=== PATIENT | male | born 1975 | race Caucasian/White ===

== ENCOUNTER 2023-02-10 08:34 | Inpatient (IN) | payer OTHER ==
[~2023-02-10] VITALS: Ht 162.6 cm; Wt 95.0 kg
[2023-02-10 09:17] LABS: BASOPHILS # (AUTO) 0.1 X10'3 (0-0.2); BASOPHILS % (AUTO) 0.8 % (0-1); EOSINOPHILS # (AUTO) 0.1 X10'3 (0-0.9); EOSINOPHILS % (AUTO) 0.7 % (0-6); HEMATOCRIT 48.6 % (42.0-52.0); HEMOGLOBIN 16.2 g/dl (14.0-17.9); LYMPHOCYTES # (AUTO) 0.9 X10'3 (1.1-4.8); LYMPHOCYTES % (AUTO) 11.1 % (21-51); MEAN CORPUSCULAR HEMOGLOBIN 31.7 PG (27.0-31.0); MEAN CORPUSCULAR HGB CONC 33.3 g/dL (33.0-36.5); MEAN CORPUSCULAR VOLUME 95.3 FL (78-98); MEAN PLATELET VOLUME 7.9 FL (7.4-10.4); MONOCYTES # (AUTO) 0.9 X10'3 (0-0.9); MONOCYTES % (AUTO) 10.6 % (2-12); NEUTROPHILS # (AUTO) 6.4 X10'3 (1.8-7.7); NEUTROPHILS % (AUTO) 76.8 % (42-75); PLATELET COUNT 252 X10'3 (140-440); RED CELL DISTRIBUTION WIDTH 13.9 % (11.5-14.5); WHITE BLOOD COUNT 8.3 X10'3 (4.5-11.0)
[2023-02-10 09:40] LABS: ALANINE AMINOTRANSFERASE 25 U/L (12-78); ALBUMIN 2.9 G/DL (3.4-5.0); ALBUMIN/GLOBULIN RATIO 0.8 (1.1-1.5); ALKALINE PHOSPHATASE 86 IU/L (46-116); ANION GAP 7 (8-16); ASPARTATE AMINO TRANSFERASE 13 U/L (10-37); BILIRUBIN,TOTAL 0.6 MG/DL (0.1-1.0); BLOOD UREA NITROGEN 16 MG/DL (7-18); BUN/CREATININE RATIO 15.1 (10.0-20.0); CHLORIDE 104 MMOL/L (99-107); CREATININE 1.06 MG/DL (0.60-1.10); GLUCOSE 148 MG/DL (70-104); POTASSIUM 3.5 MMOL/L (3.5-5.1); SODIUM 136 MMOL/L (135-145); TOTAL CARBON DIOXIDE 25.1 MMOL/L (24-32); TOTAL PROTEIN 6.6 G/DL (6.4-8.2); eGFR 74 ML/MIN
[2023-02-10] MEDS ORDERED: carVEDilol 12.5mg tablet PO STA (10:14)
[2023-02-10] MEDS ORDERED: enalaprilat dihydrate 2.5mg/2ml vial IV ONE (10:15)
[2023-02-10] MEDS ORDERED: aspirin 81mg tab.chew PO ONE (10:15)
[2023-02-10] MEDS ORDERED: furosemide 10 MG/1 ML 10ml inj IV ONE (10:15)
[2023-02-10] MEDS ORDERED: furosemide 40mg/4ml inj IV ONE (10:30)
[2023-02-10] MEDS ORDERED: potassium Cl 40MEQ/1/2NS 520ml 520 ML IV PRN (11:25)
[2023-02-10] MEDS ORDERED: ondansetron/PF 4mg/2ml inj IV PRN (11:25)
[2023-02-10] MEDS ORDERED: acetaminophen 325mg tablet PO PRN (11:25)
[2023-02-10] MEDS ORDERED: potassium Cl 20 mEq SR tablet PO PRN (11:25)
[2023-02-10] MEDS ORDERED: mag hydrox/Alum hydrox/simeth 30ml oral suspension PO PRN (11:25)
[2023-02-10] MEDS ORDERED: magnesium 4gm in 100ml NS 100 ML IV PRN (11:25)
[2023-02-10] MEDS ORDERED: magnesium hydroxide 30ml (MOM) UD suspension PO PRN (11:25)
[2023-02-10] MEDS ORDERED: CefTRIAXone 2gm/D5W 50ml BAG 50 ML IV ONE (11:40)
[2023-02-10 12:28] LABS: URINE AMPHETAMINE SCREEN NEGATIVE (Neg); URINE BARBITUATE SCREEN NEGATIVE (Neg); URINE BENZODIAZEPINES SCREEN NEGATIVE (Neg); URINE CANNABINOID SCREEN POSITIVE (Neg); URINE COCAINE SCREEN NEGATIVE (Neg); URINE METHADONE SCREEN NEGATIVE (Neg); URINE OPIATE SCREEN NEGATIVE (Neg); URINE PHENCYCLIDINE SCREEN NEGATIVE (Neg)
[2023-02-10] MEDS ORDERED: NO HOME MEDS (12:48)
--- NOTE | 2023-02-10 13:57 | NUR ---
left message for martita lyn, substance use navigator.
[2023-02-10 14:00] VITALS: BP_SYST 149; BP_DIAS 108; BP_DIAS 70
--- NOTE | 2023-02-10 14:30 | NUR ---
Received pt from ED via wheelchair. Pt A&Ox4, denies pain. Pt on RA. Oriented pt to room and call light.
[2023-02-10] MEDS: piperacillin/tazo 4.5gm/100ml 100 ML IV SCH ×2 (16:15→23:01)
[2023-02-10] MEDS ORDERED: LORazepam 2 mg/ml vial IV PRN (17:00)
[2023-02-10] MEDS ORDERED: haloperidol 5mg tablet PO PRN (17:00)
[2023-02-10] MEDS ORDERED: LORazepam 1 MG tablet PO PRN (17:00)
[2023-02-10] MEDS ORDERED: haloperidol lactate 5mg/ml inj IM PRN (17:00)
--- NOTE | 2023-02-10 17:31 | NUR ---
PAGER ID: [phone] MESSAGE: Kirk Jacobo in [id number] - Diastolic BP is 102 and previous one was 108. He was 147/108 and now 152/102. -Antoinette [phone]
--- NOTE | 2023-02-10 17:32 | NUR ---
SW Dr. Dye regarding pt's blood pressure. He is not concerned with the diastolic, just continue to monitor the systolic and call if it increases.
[2023-02-10] MEDS: docusate sod 100mg capsule PO SCH (19:46)
[2023-02-10] MEDS: K and/or MAG REPLACEMENT MC SCH (19:46)
[2023-02-10 19:50] VITALS: BP 147/109
[2023-02-10] MEDS: carvedilol 6.25mg tablet PO SCH (19:51)
[2023-02-10] MEDS: furosemide 40mg/4ml inj IV SCH (19:52)
[2023-02-10] MEDS: enoxaparin 40mg/0.4ml syringe SQ SCH (19:52)
[2023-02-10] MEDS: sacubitril/valsartan 24mg-26mg tablet PO SCH (19:52)
[2023-02-10 22:00] VITALS: BP 141/95
[2023-02-11 02:00] VITALS: BP 128/90
--- NOTE | 2023-02-11 06:00 | NUR ---
Patient in room [facility]TH[facility] 4020. I have received report from Myron HUMPHREYS and had the opportunity to ask questions and assume patient care.
[2023-02-11 06:18] LABS: ALANINE AMINOTRANSFERASE 20 U/L (12-78); ALBUMIN 2.5 G/DL (3.4-5.0); ALBUMIN/GLOBULIN RATIO 0.8 (1.1-1.5); ANION GAP 7 (8-16); ASPARTATE AMINO TRANSFERASE 12 U/L (10-37); BILIRUBIN,TOTAL 0.8 MG/DL (0.1-1.0); BLOOD UREA NITROGEN 19 MG/DL (7-18); BUN/CREATININE RATIO 15.3 (10.0-20.0); CALCIUM 7.7 MG/DL (8.5-10.1); CHLORIDE 104 MMOL/L (99-107); CREATININE 1.24 MG/DL (0.60-1.10); GLUCOSE 98 MG/DL (70-104); MAGNESIUM 1.7 MG/DL (1.5-2.4); POTASSIUM 3.3 MMOL/L (3.5-5.1); SODIUM 140 MMOL/L (135-145); TOTAL CARBON DIOXIDE 28.7 MMOL/L (24-32); TOTAL PROTEIN 5.8 G/DL (6.4-8.2); eGFR 62 ML/MIN
[2023-02-11 06:19] LABS: ALKALINE PHOSPHATASE 70 IU/L (46-116); LIPASE 88 U/L (73-393)
[2023-02-11 06:23] LABS: BASOPHILS # (AUTO) 0.1 X10'3 (0-0.2); BASOPHILS % (AUTO) 1.4 % (0-1); EOSINOPHILS # (AUTO) 0.1 X10'3 (0-0.9); EOSINOPHILS % (AUTO) 1.8 % (0-6); HEMATOCRIT 46.6 % (42.0-52.0); HEMOGLOBIN 15.7 g/dl (14.0-17.9); LYMPHOCYTES # (AUTO) 1.1 X10'3 (1.1-4.8); LYMPHOCYTES % (AUTO) 15.8 % (21-51); MEAN CORPUSCULAR HEMOGLOBIN 32.1 PG (27.0-31.0); MEAN CORPUSCULAR HGB CONC 33.7 g/dL (33.0-36.5); MEAN CORPUSCULAR VOLUME 95.4 FL (78-98); MEAN PLATELET VOLUME 8.2 FL (7.4-10.4); MONOCYTES # (AUTO) 0.9 X10'3 (0-0.9); MONOCYTES % (AUTO) 12.4 % (2-12); NEUTROPHILS # (AUTO) 4.8 X10'3 (1.8-7.7); NEUTROPHILS % (AUTO) 68.6 % (42-75); PLATELET COUNT 243 X10'3 (140-440); RED BLOOD COUNT 4.89 X10'6 (4.70-6.10); RED CELL DISTRIBUTION WIDTH 13.9 % (11.5-14.5)
[2023-02-11 06:35] VITALS: BP 136/93
[2023-02-11] MEDS: piperacillin/tazo 4.5gm/100ml 100 ML IV SCH ×2 (07:17→16:27)
[2023-02-11] MEDS: potassium Cl 20 mEq SR tablet PO PRN ×3 (07:18→17:17)
[2023-02-11] MEDS: carvedilol 6.25mg tablet PO SCH ×2 (07:18→20:15)
[2023-02-11] MEDS: docusate sod 100mg capsule PO SCH ×2 (07:18→20:00)
[2023-02-11] MEDS: multivitamins, therapeutics tablet PO SCH (07:18)
[2023-02-11] MEDS: sacubitril/valsartan 24mg-26mg tablet PO SCH ×2 (07:18→20:15)
[2023-02-11] MEDS: furosemide 40mg/4ml inj IV SCH ×2 (07:20→20:13)
[2023-02-11] MEDS: K and/or MAG REPLACEMENT MC SCH ×2 (07:25→20:00)
[2023-02-11 10:05] VITALS: BP 144/88
[2023-02-11 14:51] VITALS: BP 136/95
--- NOTE | 2023-02-11 18:20 | NUR ---
Patient in room ORTHO 4020. I have received report from Elsa HUMPHREYS and had the opportunity to ask questions and assume patient care.
[2023-02-11 19:00] VITALS: BP 131/100
[2023-02-11] MEDS: enoxaparin 40mg/0.4ml syringe SQ SCH (20:16)
[2023-02-11 22:00] VITALS: BP 133/98
[2023-02-12] VITALS (7 sets, daily range): BP systolic 136–142; BP diastolic 97–103
[2023-02-12] MEDS: piperacillin/tazo 4.5gm/100ml 100 ML IV SCH ×3 (00:06→18:13)
--- NOTE | 2023-02-12 06:55 | NUR ---
Problems reprioritized. Patient report given, questions answered & plan of care reviewed with Shanna SALEEM.
[2023-02-12 07:43] LABS: BASOPHILS # (AUTO) 0.1 X10'3 (0-0.2); BASOPHILS % (AUTO) 1.4 % (0-1); EOSINOPHILS # (AUTO) 0.2 X10'3 (0-0.9); HEMATOCRIT 50.2 % (42.0-52.0); HEMOGLOBIN 16.9 g/dl (14.0-17.9); LYMPHOCYTES # (AUTO) 1.3 X10'3 (1.1-4.8); LYMPHOCYTES % (AUTO) 17.2 % (21-51); MEAN CORPUSCULAR HEMOGLOBIN 31.9 PG (27.0-31.0); MEAN CORPUSCULAR HGB CONC 33.6 g/dL (33.0-36.5); MEAN PLATELET VOLUME 8.3 FL (7.4-10.4); MONOCYTES % (AUTO) 13.2 % (2-12); NEUTROPHILS # (AUTO) 4.8 X10'3 (1.8-7.7); NEUTROPHILS % (AUTO) 65.2 % (42-75); PLATELET COUNT 282 X10'3 (140-440); RED BLOOD COUNT 5.28 X10'6 (4.70-6.10); RED CELL DISTRIBUTION WIDTH 13.8 % (11.5-14.5); WHITE BLOOD COUNT 7.4 X10'3 (4.5-11.0)
[2023-02-12] MEDS: K and/or MAG REPLACEMENT MC SCH ×2 (08:00→20:00)
[2023-02-12] MEDS: docusate sod 100mg capsule PO SCH ×2 (08:00→20:00)
[2023-02-12] MEDS: furosemide 40mg/4ml inj IV SCH ×2 (08:10→20:38)
[2023-02-12 08:22] LABS: ALBUMIN 2.5 G/DL (3.4-5.0); ALBUMIN/GLOBULIN RATIO 0.7 (1.1-1.5); ANION GAP 9 (8-16); ASPARTATE AMINO TRANSFERASE 18 U/L (10-37); BILIRUBIN,TOTAL 0.8 MG/DL (0.1-1.0); BLOOD UREA NITROGEN 21 MG/DL (7-18); BUN/CREATININE RATIO 17.1 (10.0-20.0); CALCIUM 8.4 MG/DL (8.5-10.1); CHLORIDE 104 MMOL/L (99-107); CREATININE 1.23 MG/DL (0.60-1.10); GLUCOSE 95 MG/DL (70-104); MAGNESIUM 1.9 MG/DL (1.5-2.4); PHOSPHORUS 4.3 MG/DL (2.3-4.5); POTASSIUM 3.7 MMOL/L (3.5-5.1); SODIUM 141 MMOL/L (135-145); TOTAL CARBON DIOXIDE 28.1 MMOL/L (24-32); TOTAL PROTEIN 6.3 G/DL (6.4-8.2); eGFR 63 ML/MIN
[2023-02-12 08:23] LABS: ALANINE AMINOTRANSFERASE 19 U/L (12-78); ALKALINE PHOSPHATASE 67 IU/L (46-116); LIPASE 83 U/L (73-393)
[2023-02-12] MEDS: sacubitril/valsartan 24mg-26mg tablet PO SCH ×2 (08:58→20:39)
[2023-02-12] MEDS: carvedilol 6.25mg tablet PO SCH ×2 (08:58→20:38)
[2023-02-12] MEDS: multivitamins, therapeutics tablet PO SCH (08:58)
--- NOTE | 2023-02-12 18:08 | NUR ---
[employer] documentation: I have reviewed and agree with all interventions, assessments performed and documented by Radha SALEEM, no new finding noted.
[2023-02-12] MEDS: enoxaparin 40mg/0.4ml syringe SQ SCH (20:39)
[2023-02-13] VITALS (16 sets, daily range): BP systolic 126–155; BP diastolic 88–119
[2023-02-13] MEDS: piperacillin/tazo 4.5gm/100ml 100 ML IV SCH ×2 (00:36→10:24)
[2023-02-13 06:38] LABS: BASOPHILS # (AUTO) 0.1 X10'3 (0-0.2); BASOPHILS % (AUTO) 1.3 % (0-1); EOSINOPHILS # (AUTO) 0.3 X10'3 (0-0.9); EOSINOPHILS % (AUTO) 3.8 % (0-6); HEMOGLOBIN 17.7 g/dl (14.0-17.9); LYMPHOCYTES # (AUTO) 1.3 X10'3 (1.1-4.8); LYMPHOCYTES % (AUTO) 17.3 % (21-51); MEAN CORPUSCULAR HEMOGLOBIN 32.4 PG (27.0-31.0); MEAN CORPUSCULAR VOLUME 95.5 FL (78-98); MEAN PLATELET VOLUME 7.8 FL (7.4-10.4); MONOCYTES % (AUTO) 13.1 % (2-12); NEUTROPHILS # (AUTO) 4.9 X10'3 (1.8-7.7); NEUTROPHILS % (AUTO) 64.5 % (42-75); PLATELET COUNT 306 X10'3 (140-440); RED BLOOD COUNT 5.45 X10'6 (4.70-6.10); RED CELL DISTRIBUTION WIDTH 13.8 % (11.5-14.5); WHITE BLOOD COUNT 7.6 X10'3 (4.5-11.0)
[2023-02-13 06:46] LABS: ALANINE AMINOTRANSFERASE 21 U/L (12-78); ALBUMIN 2.6 G/DL (3.4-5.0); ALBUMIN/GLOBULIN RATIO 0.7 (1.1-1.5); ALKALINE PHOSPHATASE 68 IU/L (46-116); ANION GAP 9 (8-16); ASPARTATE AMINO TRANSFERASE 19 U/L (10-37); BILIRUBIN,TOTAL 0.7 MG/DL (0.1-1.0); BLOOD UREA NITROGEN 30 MG/DL (7-18); BUN/CREATININE RATIO 19.9 (10.0-20.0); CALCIUM 8.4 MG/DL (8.5-10.1); CHLORIDE 102 MMOL/L (99-107); CREATININE 1.51 MG/DL (0.60-1.10); GLUCOSE 103 MG/DL (70-104); LIPASE 121 U/L (73-393); MAGNESIUM 2.1 MG/DL (1.5-2.4); POTASSIUM 3.7 MMOL/L (3.5-5.1); SODIUM 139 MMOL/L (135-145); TOTAL PROTEIN 6.6 G/DL (6.4-8.2); eGFR 49 ML/MIN
[2023-02-13] MEDS: docusate sod 100mg capsule PO SCH (08:00)
[2023-02-13] MEDS: K and/or MAG REPLACEMENT MC SCH (08:00)
[2023-02-13] MEDS: multivitamins, therapeutics tablet PO SCH (08:00)
[2023-02-13] MEDS: carvedilol 6.25mg tablet PO SCH (10:24)
[2023-02-13] MEDS: sacubitril/valsartan 24mg-26mg tablet PO SCH (10:25)
[2023-02-13] MEDS ORDERED: fentaNYL/PF 50MCG/1 ML 2ML syringe ONE (12:22)
[2023-02-13] MEDS ORDERED: midazolam 1 mg/ML 2ml injection ONE (12:22)
[2023-02-13] MEDS ORDERED: gelatin sponge, absorbable (Gelfoam 12-7MM) sponge TP ONE (12:24)
[2023-02-13] MEDS ORDERED: CARV6.253 PO (16:16)
[2023-02-13] MEDS ORDERED: FURO20TA4 PO (16:16)
[2023-02-13] MEDS ORDERED: AMOX-580 PO (16:16)
[2023-02-13] MEDS ORDERED: SACU1TAB PO (16:16)
[2023-02-13] MEDS ORDERED: furosemide 40mg/4ml inj IV SCH (20:00)
[2023-02-15] MEDS ORDERED: folic acid 1mg tablet PO SCH (08:00)
[2023-02-15] MEDS ORDERED: thiamine 100mg tablet PO SCH (08:00)
== END 2023-02-13 17:00 | disposition home or self-care (01) | DRG 193 ==
LOC: ER 08:36 → ED HOLD 11:32 → EDBEDREQ 13:22 → ORTHO 4S 14:07
PROVIDERS: ADMIT Family Medicine; ATTEND Family Medicine
PROC: 0BBK3ZX Excision of Right Lung, Percutaneous Approach, Diagnostic (ICD-10-PCS; principal; 2023-02-13)
DX: J18.9 Pneumonia, unspecified organism (principal); I50.21 Acute systolic (congestive) heart failure; F12.90 Cannabis use, unspecified, uncomplicated; N28.9 Disorder of kidney and ureter, unspecified; F10.20 Alcohol dependence, uncomplicated; R14.0 Abdominal distension (gaseous); R91.1 Solitary pulmonary nodule; F17.210 Nicotine dependence, cigarettes, uncomplicated; Z80.0 Family history of malignant neoplasm of digestive organs; Z80.42 Family history of malignant neoplasm of prostate; Z83.3 Family history of diabetes mellitus; Z71.6 Tobacco abuse counseling
CPT/HCPCS: 32408; 36415; 71045; 71250; 77012; 80053; 80305; 83690; 83735; 83880; 84100; 84145; 84484; 85025; 85610; 87081; 93005; 93306; 96374; 99152; 99153; 99285; G0378; J0696; J1650; J1940; J2250; J2543; J3010; J7040